=== PATIENT | male | born 1935 | race Caucasian/White ===

== ENCOUNTER 2018-04-21 10:51 | Outpatient (CLI) | payer MEDICARE ==
--- NOTE | 2018-04-21 11:34 | RAD ---
LUMBAR SPINE THREE VIEWS: Technique: Lateral views were obtained in neutral, flexion, and extension positions. History: Low back pain. FINDINGS: In the neutral position the lumbar vertebrae maintain height. There is loss of disc space at multiple levels, more prominent at T12-L1. Prominent osteophytes are seen anteriorly in the lower thoracic an d upper lumbar spine with bridging anterior osteophytes at T11-12 and T12-L1. Slight posterior listhesis at L1-2 and slight posterior listhesis at L2-3 measuring approximately 4 m m. Slight anterolisthesis at L4-5 measuring approximately 3-4 mm. Minimal anterolisthesis at L5-S1. P osterior facet hypertrophy is prominent. The listhesis at these levels do not appear to significantly change with flexion or extension. 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 POS: [facility]
== END 2018-04-21 10:52 | disposition home or self-care (01) ==
LOC: TBSIIMAG 10:51
PROVIDERS: ATTEND Neurological Surgery
DX: M54.5 Low back pain (principal); M47.816 Spondylosis without myelopathy or radiculopathy, lumbar region; M43.16 Spondylolisthesis, lumbar region
CPT/HCPCS: 72100

== ENCOUNTER 2021-09-20 10:55 | Outpatient (CLI) | payer MEDICARE | END 2021-09-20 10:56 | disposition home or self-care (01) | LOC: LABBT 10:55 | PROVIDERS: ATTEND Neurological Surgery | DX: Z20.822 Contact with and (suspected) exposure to COVID-19 (principal) | CPT/HCPCS: 87811 ==

== ENCOUNTER → 2021-09-24 | Day surgery (SDC) | payer MEDICARE ==
[2021-09-21 10:41] VITALS: BMI 25.7
[2021-09-24 08:39] LABS: #Eosinphils 0.1 thou/uL (0.0-0.7); #Lymphocytes 1.8 thou/uL (1.20-3.40); #Monocytes 1.1 thou/uL (0.11-0.59); #Neutrophils 6.7 thou/uL (1.40-6.50); %Basophils 0.3 % (0.0-1.0); %Eosinophils 1.2 % (0.0-10.0); %Lymphocytes 18.6 % (21.0-51.0); %Monocytes 11.1 % (0.0-10.0); %Neutrophils 68.7 % (42.0-75.0); Hemoglobin 13.4 g/dL (14.0-18.0); Mean Corpuscular HGB CONC 31.1 g/dL (32.0-36.0); Mean Corpuscular Hemoglobin 29.8 pg (27.0-31.0); Mean Corpuscular Volume 95.7 fL (78.0-98.0); Mean Platelet Volume 6.9 fL (7.4-10.4); Platelet Count 238 thou/uL (130-400); RBC Distribution Width 12.7 % (11.5-14.5); White Blood Cell (WBC) Count 9.8 thou/uL (4.8-10.8)
[2021-09-24 08:52] LABS: Prothrombin Time 13.6 sec (12.0-14.7)
[2021-09-24 09:28] VITALS: BP 133/72; TEMP 98
== END | disposition home or self-care (01) ==
LOC: CT 08:40
PROVIDERS: ATTEND Neurological Surgery
PROC: 0FB13ZX Excision of Right Lobe Liver, Percutaneous Approach, Diagnostic (ICD-10-PCS; principal; 2021-09-24)
DX: C22.7 Other specified carcinomas of liver (principal); C78.7 Secondary malignant neoplasm of liver and intrahepatic bile duct; C79.51 Secondary malignant neoplasm of bone; C78.00 Secondary malignant neoplasm of unspecified lung; E78.5 Hyperlipidemia, unspecified; Z87.891 Personal history of nicotine dependence; Z79.01 Long term (current) use of anticoagulants; Z79.899 Other long term (current) drug therapy; Z95.0 Presence of cardiac pacemaker; C34.82 Malignant neoplasm of overlapping sites of left bronchus and lung
CPT/HCPCS: 36415; 47000; 77012; 80053; 82248; 82378; 82728; 83615; 84100; 84153; 84155; 84165; 84550; 85025; 85610; 85730; 86301; 88307; 88333; 88341; 88342

== ENCOUNTER 2021-10-06 10:40 | Inpatient (IN) | payer MEDICARE ==
[2021-10-06] MEDS ORDERED: Morphine 4 MG/ML VIAL ONE ×2 (11:19→15:35)
[2021-10-06] MEDS ORDERED: Ondansetron PF 4 MG/2 ML Vial ONE (11:19)
[2021-10-06 11:26] LABS: #Lymphocytes 2.1 thou/uL (1.20-3.40); #Monocytes 1.6 thou/uL (0.11-0.59); #Neutrophils 10.5 thou/uL (1.40-6.50); %Basophils 0.1 % (0.0-1.0); %Eosinophils 0.2 % (0.0-10.0); %Lymphocytes 14.7 % (21.0-51.0); %Monocytes 11.5 % (0.0-10.0); %Neutrophils 73.5 % (42.0-75.0); Hemoglobin 15.5 g/dL (14.0-18.0); Mean Corpuscular HGB CONC 31.4 g/dL (32.0-36.0); Mean Corpuscular Hemoglobin 29.5 pg (27.0-31.0); Mean Corpuscular Volume 93.9 fL (78.0-98.0); Mean Platelet Volume 7.4 fL (7.4-10.4); Platelet Count 263 thou/uL (130-400); RBC Distribution Width 13.2 % (11.5-14.5); Red Blood Cell (RBC) Count 5.27 mill/uL (4.70-6.10); White Blood Cell (WBC) Count 14.3 thou/uL (4.8-10.8)
[2021-10-06 11:43] LABS: Bilirubin Negative (Negative); Blood, Urine Negative (Negative); Glucose, Urine (Dipstick) Normal (Negative); Ketone, Urine Trace mg/dL (Negative); Leukocyte Negative Leu/uL (Negative); Nitrite Negative (Negative); Protein, Urine (Dipstick) 20 mg/dL (Neg-Trace); Specific Gravity, Urine 1.016 (1.002-1.036); Urobilinogen Normal mg/dL (Less than 2); pH, Urine 7.5 (5.0-9.0)
[2021-10-06 11:46] LABS: Clarity Hazy (Clear)
[2021-10-06 11:49] LABS: ALT (SGPT) 15 U/L (8-55); AST (SGOT) 18 U/L (5-34); Albumin 4.2 g/dL (3.4-4.8); Alkaline Phosphatase 164 U/L (40-110); BUN (Urea Nitrogen) 26 mg/dL (8.4-25.7); Bilirubin, Total 1.8 mg/dL (0.2-1.2); CK (CPK) 46 U/L (30-200); Calc. Creatinine Clearance 0 mL/min (70-130); Calcium 9.9 mg/dL (7.8-10.44); Carbon Dioxide 21 mmol/L (23-31); Chloride 98 mmol/L (98-107); Estimated GFR 53; Globulin 2.5 g/dL (2.4-3.5); Glucose 144 mg/dL (83-110); Lipase 15 U/L (8-78); Potassium 4.1 mmol/L (3.5-5.1); Protein, Total 6.7 g/dL (5.8-8.1); Sodium 139 mmol/L (136-145)
[2021-10-06 12:05] LABS: Anion Gap 24 mmol/L (10-20)
[2021-10-06 14:34] LABS: Lactic Acid 1.5 mmol/L (0.5-2.2)
[2021-10-06] MEDS ORDERED: Iopamidol-370 76% 500 ML 1 ML ONE (15:50)
[2021-10-06] MEDS ORDERED: Ondansetron ODT 4 MG TAB PO PRN (16:14)
[2021-10-06] MEDS ORDERED: Acetaminophen 325 MG TAB PO PRN (16:14)
[2021-10-06] MEDS ORDERED: Bisacodyl 10 MG SUPP PR PRN (16:14)
[2021-10-06] MEDS ORDERED: Senokot S 8.6-50 MG TAB PO PRN (16:14)
[2021-10-06 17:09] LABS: Troponin I 0.015 ng/mL (< 0.028)
[2021-10-06 17:22] VITALS: BMI 24.6
[2021-10-06] MEDS: Sodium Chloride 0.9% 1,000 ML IV SCH (18:12)
[2021-10-06] MEDS ORDERED: Ketorolac Tromethamine 30 MG/ML VIAL IVP PRN (18:56)
[2021-10-06] MEDS: HYDROmorphone 2 MG TAB PO SCH (19:17)
[2021-10-06 19:25] LABS: SARS-CoV-2 NAA Rapid Test Not Detected (NotDetected)
[2021-10-06] MEDS: Simvastatin 10 MG TAB PO SCH (21:59)
[2021-10-06] MEDS: Metoprolol Tartrate 25 MG TAB PO SCH (21:59)
[2021-10-06] MEDS: Apixaban 2.5 MG TAB PO SCH (21:59)
[2021-10-06] MEDS: Flecainide 50 MG TAB PO SCH (21:59)
[2021-10-06] MEDS: Famotidine 20 MG TAB PO SCH (21:59)
[2021-10-06] MEDS ORDERED: hydrALAZINE 25 MG TAB PO SCH (22:00)
[2021-10-06] MEDS: hydrALAZINE 25 MG TAB PO SCH (22:05)
[2021-10-06] MEDS: Morphine 2 MG/ML VIAL SLOW IVP PRN (22:17)
[2021-10-07] MEDS: HYDROmorphone 2 MG TAB PO SCH ×4 (03:29→18:40)
[2021-10-07] MEDS: Morphine 2 MG/ML VIAL SLOW IVP PRN ×3 (05:30→16:07)
[2021-10-07] MEDS: hydrALAZINE 25 MG TAB PO SCH ×3 (05:31→21:00)
[2021-10-07 06:12] LABS: Anion Gap 14 mmol/L (10-20); BUN (Urea Nitrogen) 26 mg/dL (8.4-25.7); Calc. Creatinine Clearance 61 mL/min (70-130); Calcium 8.8 mg/dL (7.8-10.44); Carbon Dioxide 26 mmol/L (23-31); Chloride 101 mmol/L (98-107); Estimated GFR 74; Glucose 94 mg/dL (83-110); Potassium 4.2 mmol/L (3.5-5.1); Sodium 137 mmol/L (136-145)
[2021-10-07 06:18] LABS: #Eosinphils 0.1 thou/uL (0.0-0.7); %Basophils 0.1 % (0.0-1.0); %Eosinophils 1.6 % (0.0-10.0); %Monocytes 10.5 % (0.0-10.0); %Neutrophils 76.8 % (42.0-75.0); Hemoglobin 13.1 g/dL (14.0-18.0); Mean Corpuscular HGB CONC 32.8 g/dL (32.0-36.0); Mean Corpuscular Hemoglobin 30.9 pg (27.0-31.0); Mean Corpuscular Volume 94.2 fL (78.0-98.0); Mean Platelet Volume 7.2 fL (7.4-10.4); Platelet Count 191 thou/uL (130-400); RBC Distribution Width 13.3 % (11.5-14.5); Red Blood Cell (RBC) Count 4.23 mill/uL (4.70-6.10); White Blood Cell (WBC) Count 9.2 thou/uL (4.8-10.8)
[2021-10-07] MEDS: Sodium Chloride 0.9% 1,000 ML IV SCH (07:33)
[2021-10-07] MEDS: Ondansetron PF 4 MG/2 ML Vial IVP PRN ×2 (07:33→13:49)
[2021-10-07] MEDS ORDERED: Proctozone-HC 30 GM TUBE TOP PRN (08:26)
[2021-10-07] MEDS: Citalopram 20 MG TAB PO SCH (08:28)
[2021-10-07] MEDS: Flecainide 50 MG TAB PO SCH ×2 (08:28→21:01)
[2021-10-07] MEDS: Tamsulosin HCl 0.4 MG CAP PO SCH (08:28)
[2021-10-07] MEDS: Famotidine 20 MG TAB PO SCH ×2 (08:28→21:00)
[2021-10-07] MEDS: Metoprolol Tartrate 25 MG TAB PO SCH ×2 (08:28→21:01)
[2021-10-07] MEDS: Polyethylene Glycol 3350 17 GM Packet PO SCH (08:28)
[2021-10-07] MEDS ORDERED: Lidocaine 5% Patch TD SCH (08:30)
[2021-10-07] MEDS ORDERED: fentaNYL 50 mcg/hour Patch TD SCH (09:00)
[2021-10-07] MEDS: Senokot S 8.6-50 MG TAB PO SCH ×2 (09:37→21:02)
[2021-10-07] MEDS: Apixaban 2.5 MG TAB PO SCH ×2 (09:37→21:00)
[2021-10-07] MEDS: Simvastatin 10 MG TAB PO SCH (21:00)
[2021-10-07] MEDS: Transdermal Patch Removal TOP SCH (21:02)
[2021-10-07] MEDS: Melatonin 3 MG TAB PO PRN (23:40)
[2021-10-08] MEDS: HYDROmorphone 2 MG TAB PO SCH ×4 (02:15→20:00)
[2021-10-08 06:02] LABS: #Eosinphils 0.1 thou/uL (0.0-0.7); #Monocytes 1.2 thou/uL (0.11-0.59); %Basophils 0.2 % (0.0-1.0); %Eosinophils 1.4 % (0.0-10.0); %Lymphocytes 9.7 % (21.0-51.0); %Monocytes 11.5 % (0.0-10.0); %Neutrophils 77.2 % (42.0-75.0); Hemoglobin 12.8 g/dL (14.0-18.0); Mean Corpuscular HGB CONC 32.5 g/dL (32.0-36.0); Mean Corpuscular Hemoglobin 30.6 pg (27.0-31.0); Mean Corpuscular Volume 94.4 fL (78.0-98.0); Mean Platelet Volume 7.4 fL (7.4-10.4); Platelet Count 170 thou/uL (130-400); RBC Distribution Width 13.1 % (11.5-14.5); Red Blood Cell (RBC) Count 4.18 mill/uL (4.70-6.10); White Blood Cell (WBC) Count 10.3 thou/uL (4.8-10.8)
[2021-10-08] MEDS: hydrALAZINE 25 MG TAB PO SCH ×3 (06:14→22:11)
[2021-10-08 06:26] LABS: Anion Gap 12 mmol/L (10-20); BUN (Urea Nitrogen) 19 mg/dL (8.4-25.7); Calc. Creatinine Clearance 72 mL/min (70-130); Calcium 8.9 mg/dL (7.8-10.44); Carbon Dioxide 24 mmol/L (23-31); Chloride 100 mmol/L (98-107); Estimated GFR 85; Glucose 100 mg/dL (83-110); Potassium 4.3 mmol/L (3.5-5.1); Sodium 132 mmol/L (136-145)
[2021-10-08 06:38] LABS: CEA, Serum 8.95 ng/mL (< or = 5.0)
[2021-10-08 06:39] LABS: PSA-Asymptomatic (SCREENING) 0.07 ng/mL (0-4.0)
[2021-10-08] MEDS: Tamsulosin HCl 0.4 MG CAP PO SCH (08:11)
[2021-10-08] MEDS: Polyethylene Glycol 3350 17 GM Packet PO SCH (08:11)
[2021-10-08] MEDS: Citalopram 20 MG TAB PO SCH (08:11)
[2021-10-08] MEDS: Flecainide 50 MG TAB PO SCH ×2 (08:11→21:06)
[2021-10-08] MEDS: Famotidine 20 MG TAB PO SCH ×2 (08:11→21:06)
[2021-10-08] MEDS: Metoprolol Tartrate 25 MG TAB PO SCH ×2 (08:11→21:06)
[2021-10-08] MEDS: Senokot S 8.6-50 MG TAB PO SCH ×2 (08:11→21:06)
[2021-10-08] MEDS: Apixaban 2.5 MG TAB PO SCH ×2 (08:12→21:06)
[2021-10-08] MEDS: Lidocaine 5% Patch TD SCH (08:12)
[2021-10-08] MEDS: Gabapentin 300 MG CAP PO SCH ×3 (10:01→21:05)
[2021-10-08] MEDS: fentaNYL 75 mcg/hour Patch TD SCH (10:02)
[2021-10-08] MEDS: Ondansetron PF 4 MG/2 ML Vial IVP PRN (11:27)
[2021-10-08] MEDS: HYDROcodone/Acetaminophen 10/325 mg Tablet PO PRN (17:25)
[2021-10-08] MEDS: Transdermal Patch Removal TOP SCH (21:05)
[2021-10-08] MEDS: Simvastatin 10 MG TAB PO SCH (21:06)
[2021-10-08] MEDS: Dexamethasone 4 MG TAB PO SCH (21:07)
[2021-10-09] MEDS: HYDROmorphone 2 MG TAB PO SCH ×4 (02:10→20:10)
[2021-10-09] MEDS: hydrALAZINE 25 MG TAB PO SCH ×3 (05:14→22:30)
[2021-10-09 05:26] LABS: Anion Gap 13 mmol/L (10-20); BUN (Urea Nitrogen) 19 mg/dL (8.4-25.7); Calc. Creatinine Clearance 65 mL/min (70-130); Calcium 9.4 mg/dL (7.8-10.44); Carbon Dioxide 26 mmol/L (23-31); Chloride 99 mmol/L (98-107); Estimated GFR 81; Glucose 109 mg/dL (83-110); Potassium 4.4 mmol/L (3.5-5.1); Sodium 134 mmol/L (136-145)
[2021-10-09 05:47] LABS: Band 9 % (5-11); Hemoglobin 13.8 g/dL (14.0-18.0); Lymphocytes 14 % (21-51); MDiff Complete? YES; Mean Corpuscular HGB CONC 32.9 g/dL (32.0-36.0); Mean Corpuscular Hemoglobin 30.9 pg (27.0-31.0); Mean Corpuscular Volume 94.2 fL (78.0-98.0); Mean Platelet Volume 7.6 fL (7.4-10.4); Monocytes 3 % (0-10); Neutrophil 74 % (42-75); Platelet Count 170 thou/uL (130-400); RBC Distribution Width 13.1 % (11.5-14.5); Red Blood Cell (RBC) Count 4.46 mill/uL (4.70-6.10); White Blood Cell (WBC) Count 8.5 thou/uL (4.8-10.8)
[2021-10-09] MEDS: Tamsulosin HCl 0.4 MG CAP PO SCH (08:14)
[2021-10-09] MEDS: Dexamethasone 4 MG TAB PO SCH ×2 (08:14→20:10)
[2021-10-09] MEDS: Metoprolol Tartrate 25 MG TAB PO SCH ×2 (08:14→20:10)
[2021-10-09] MEDS: Citalopram 20 MG TAB PO SCH (08:14)
[2021-10-09] MEDS: Famotidine 20 MG TAB PO SCH (08:14)
[2021-10-09] MEDS: Flecainide 50 MG TAB PO SCH ×2 (08:14→20:10)
[2021-10-09] MEDS: Lidocaine 5% Patch TD SCH (08:15)
[2021-10-09] MEDS: Polyethylene Glycol 3350 17 GM Packet PO SCH (08:15)
[2021-10-09] MEDS: Gabapentin 300 MG CAP PO SCH ×3 (08:15→20:10)
[2021-10-09] MEDS: Senokot S 8.6-50 MG TAB PO SCH ×2 (08:16→20:10)
[2021-10-09] MEDS: Apixaban 2.5 MG TAB PO SCH (08:16)
[2021-10-09] MEDS: HYDROcodone/Acetaminophen 10/325 mg Tablet PO PRN (16:13)
[2021-10-09] MEDS: Simvastatin 10 MG TAB PO SCH (20:10)
[2021-10-09] MEDS: Apixaban 5 MG TAB PO SCH (20:11)
[2021-10-09] MEDS: Transdermal Patch Removal TOP SCH (20:11)
[2021-10-10] MEDS: HYDROmorphone 2 MG TAB PO SCH ×4 (01:18→20:11)
[2021-10-10] MEDS: hydrALAZINE 25 MG TAB PO SCH ×2 (05:59→17:47)
[2021-10-10] MEDS: Apixaban 5 MG TAB PO SCH ×2 (08:56→20:11)
[2021-10-10] MEDS: Lidocaine 5% Patch TD SCH (08:56)
[2021-10-10] MEDS: Citalopram 20 MG TAB PO SCH (08:56)
[2021-10-10] MEDS: Tamsulosin HCl 0.4 MG CAP PO SCH (08:56)
[2021-10-10] MEDS: Gabapentin 300 MG CAP PO SCH ×3 (08:56→20:11)
[2021-10-10] MEDS: Flecainide 50 MG TAB PO SCH ×2 (08:56→20:12)
[2021-10-10] MEDS: Senokot S 8.6-50 MG TAB PO SCH ×2 (08:57→20:11)
[2021-10-10] MEDS: Dexamethasone 4 MG TAB PO SCH ×2 (08:57→20:13)
[2021-10-10] MEDS: Metoprolol Tartrate 25 MG TAB PO SCH (08:57)
[2021-10-10] MEDS: Polyethylene Glycol 3350 17 GM Packet PO SCH (08:57)
[2021-10-10] MEDS: HYDROcodone/Acetaminophen 10/325 mg Tablet PO PRN (10:38)
[2021-10-10] MEDS ORDERED: Metoprolol Tartrate 5 MG/5 ML VIAL IVP SCH (12:47)
[2021-10-10] MEDS ORDERED: Digoxin 0.5 MG/2 ML AMP SLOW IVP SCH (18:45)
[2021-10-10] MEDS ORDERED: Diltiazem 125 MG in Sodium Chloride 0.9% 100 ML IVPB SCH (18:45)
[2021-10-10] MEDS: Sodium Chloride 0.9% 1,000 ML IV SCH (19:20)
[2021-10-10] MEDS ORDERED: Diltiazem HCl 125 MG in Premix Bag 1 BAG IVPB SCH (19:45)
[2021-10-10] MEDS: Simvastatin 10 MG TAB PO SCH (20:11)
[2021-10-10] MEDS: Melatonin 3 MG TAB PO PRN (20:28)
[2021-10-10] MEDS ORDERED: Metoprolol Tartrate 50 MG TAB PO SCH (21:00)
[2021-10-10] MEDS: Transdermal Patch Removal TOP SCH (22:24)
[2021-10-11] MEDS: HYDROmorphone 2 MG TAB PO SCH ×4 (01:05→21:14)
[2021-10-11] MEDS ORDERED: Sodium Chloride 0.9% 1,000 ML IV SCH (04:45)
[2021-10-11] MEDS: fentaNYL 75 mcg/hour Patch TD SCH (09:34)
[2021-10-11] MEDS: Gabapentin 300 MG CAP PO SCH ×3 (09:36→21:15)
[2021-10-11] MEDS: Flecainide 50 MG TAB PO SCH ×2 (09:36→21:14)
[2021-10-11] MEDS: Citalopram 20 MG TAB PO SCH (09:36)
[2021-10-11] MEDS: Apixaban 5 MG TAB PO SCH ×2 (09:36→21:15)
[2021-10-11] MEDS: Polyethylene Glycol 3350 17 GM Packet PO SCH (09:37)
[2021-10-11] MEDS: Senokot S 8.6-50 MG TAB PO SCH ×2 (09:37→21:15)
[2021-10-11] MEDS: Lidocaine 5% Patch TD SCH (09:37)
[2021-10-11] MEDS: Sodium Chloride 0.9% 1,000 ML IV SCH (09:37)
[2021-10-11] MEDS: Dexamethasone 4 MG TAB PO SCH ×2 (09:37→21:16)
[2021-10-11] MEDS: Simvastatin 10 MG TAB PO SCH (21:13)
[2021-10-11] MEDS: Metoprolol Tartrate 25 MG TAB PO SCH (21:15)
[2021-10-11] MEDS: Melatonin 3 MG TAB PO PRN (21:22)
[2021-10-12] MEDS: Transdermal Patch Removal TOP SCH ×2 (00:38→20:35)
[2021-10-12] MEDS: Sodium Chloride 0.9% 1,000 ML IV SCH ×2 (00:42→14:10)
[2021-10-12] MEDS: HYDROmorphone 2 MG TAB PO SCH ×4 (00:49→19:29)
[2021-10-12] MEDS: Lidocaine 5% Patch TD SCH (09:05)
[2021-10-12] MEDS: Polyethylene Glycol 3350 17 GM Packet PO SCH (09:05)
[2021-10-12] MEDS: Gabapentin 300 MG CAP PO SCH ×3 (09:05→20:34)
[2021-10-12] MEDS: Metoprolol Tartrate 25 MG TAB PO SCH (09:06)
[2021-10-12] MEDS: Apixaban 5 MG TAB PO SCH ×2 (09:07→20:34)
[2021-10-12] MEDS: Flecainide 50 MG TAB PO SCH (09:07)
[2021-10-12] MEDS: Citalopram 20 MG TAB PO SCH (09:07)
[2021-10-12] MEDS: Senokot S 8.6-50 MG TAB PO SCH ×2 (09:07→20:35)
[2021-10-12] MEDS: Dexamethasone 4 MG TAB PO SCH ×2 (09:07→20:35)
[2021-10-12] MEDS ORDERED: Metoprolol Tartrate 5 MG/5 ML VIAL ONE ×2 (12:12→12:27)
[2021-10-12] MEDS ORDERED: Amiodarone 150 MG, Admixture Fee 1 EACH in Dextrose 5% in Water 100 ML IVPB SCH (14:00)
[2021-10-12] MEDS: Amiodarone 450 MG, Admixture Fee 1 EACH in Dextrose 5% in Water 250 ML IVPB SCH (15:13)
[2021-10-12] MEDS: Simvastatin 10 MG TAB PO SCH (20:34)
[2021-10-12] MEDS ORDERED: Metoprolol Tartrate 25 MG TAB PO SCH (21:00)
[2021-10-13] MEDS: HYDROmorphone 2 MG TAB PO SCH ×4 (01:55→20:13)
[2021-10-13] MEDS: Amiodarone 450 MG, Admixture Fee 1 EACH in Dextrose 5% in Water 250 ML IVPB SCH ×2 (01:57→17:24)
[2021-10-13] MEDS: Sodium Chloride 0.9% 1,000 ML IV SCH ×2 (03:49→17:24)
[2021-10-13] MEDS: Dexamethasone 4 MG TAB PO SCH ×2 (11:00→20:14)
[2021-10-13] MEDS: Polyethylene Glycol 3350 17 GM Packet PO SCH (11:00)
[2021-10-13] MEDS: Citalopram 20 MG TAB PO SCH (11:00)
[2021-10-13] MEDS: Gabapentin 300 MG CAP PO SCH ×3 (11:01→20:14)
[2021-10-13] MEDS: Apixaban 5 MG TAB PO SCH ×2 (11:01→20:14)
[2021-10-13] MEDS: Senokot S 8.6-50 MG TAB PO SCH ×2 (11:02→20:14)
[2021-10-13] MEDS: Lidocaine 5% Patch TD SCH (11:02)
[2021-10-13] MEDS: Morphine 2 MG/ML VIAL SLOW IVP PRN (11:14)
[2021-10-13] MEDS ORDERED: Digoxin 0.5 MG/2 ML AMP SLOW IVP SCH (11:45)
[2021-10-13] MEDS: Transdermal Patch Removal TOP SCH (20:14)
[2021-10-13] MEDS: Simvastatin 10 MG TAB PO SCH (20:14)
[2021-10-14] MEDS: HYDROmorphone 2 MG TAB PO SCH ×4 (03:05→20:47)
[2021-10-14] MEDS: Amiodarone 450 MG, Admixture Fee 1 EACH in Dextrose 5% in Water 250 ML IVPB SCH (08:05)
[2021-10-14] MEDS: Sodium Chloride 0.9% 1,000 ML IV SCH ×2 (08:05→20:46)
[2021-10-14] MEDS ORDERED: Furosemide 40 MG/4 ML VIAL SLOW IVP SCH (08:30)
[2021-10-14] MEDS: fentaNYL 75 mcg/hour Patch TD SCH (09:32)
[2021-10-14] MEDS: Lidocaine 5% Patch TD SCH (09:34)
[2021-10-14] MEDS: Apixaban 5 MG TAB PO SCH ×2 (09:34→20:51)
[2021-10-14] MEDS: Gabapentin 300 MG CAP PO SCH ×3 (09:34→20:50)
[2021-10-14] MEDS: Citalopram 20 MG TAB PO SCH (09:34)
[2021-10-14] MEDS: Dexamethasone 4 MG TAB PO SCH ×2 (09:35→20:51)
[2021-10-14] MEDS: Senokot S 8.6-50 MG TAB PO SCH ×2 (11:11→20:49)
[2021-10-14] MEDS: Polyethylene Glycol 3350 17 GM Packet PO SCH (11:11)
[2021-10-14] MEDS: Amiodarone 200 MG TAB PO SCH ×2 (11:12→20:50)
[2021-10-14] MEDS: Simvastatin 10 MG TAB PO SCH (20:50)
[2021-10-14] MEDS: Transdermal Patch Removal TOP SCH (20:57)
[2021-10-14] MEDS: Morphine 2 MG/ML VIAL SLOW IVP PRN (23:46)
[2021-10-15] MEDS: HYDROmorphone 2 MG TAB PO SCH ×4 (05:57→20:26)
[2021-10-15 08:21] LABS: #Lymphocytes 0.5 thou/uL (1.20-3.40); #Monocytes 0.7 thou/uL (0.11-0.59); #Neutrophils 6.2 thou/uL (1.40-6.50); %Basophils 0.1 % (0.0-1.0); %Eosinophils 0.2 % (0.0-10.0); %Lymphocytes 6.9 % (21.0-51.0); %Monocytes 9.1 % (0.0-10.0); %Neutrophils 83.7 % (42.0-75.0); Hemoglobin 13.9 g/dL (14.0-18.0); Mean Corpuscular HGB CONC 32.1 g/dL (32.0-36.0); Mean Corpuscular Hemoglobin 30.1 pg (27.0-31.0); Mean Corpuscular Volume 93.8 fL (78.0-98.0); Mean Platelet Volume 7.4 fL (7.4-10.4); Platelet Count 205 thou/uL (130-400); RBC Distribution Width 13.5 % (11.5-14.5); White Blood Cell (WBC) Count 7.5 thou/uL (4.8-10.8)
[2021-10-15 08:35] LABS: ALT (SGPT) 15 U/L (8-55); AST (SGOT) 15 U/L (5-34); Albumin 3.3 g/dL (3.4-4.8); Alkaline Phosphatase 139 U/L (40-110); Anion Gap 12 mmol/L (10-20); BUN (Urea Nitrogen) 18 mg/dL (8.4-25.7); Bilirubin, Total 0.8 mg/dL (0.2-1.2); Calc. Creatinine Clearance 72 mL/min (70-130); Calcium 8.7 mg/dL (7.8-10.44); Carbon Dioxide 27 mmol/L (23-31); Chloride 99 mmol/L (98-107); Estimated GFR 84; Globulin 2.2 g/dL (2.4-3.5); Glucose 113 mg/dL (83-110); Potassium 3.9 mmol/L (3.5-5.1); Protein, Total 5.5 g/dL (5.8-8.1); Sodium 134 mmol/L (136-145)
[2021-10-15] MEDS: Gabapentin 300 MG CAP PO SCH ×3 (10:31→20:28)
[2021-10-15] MEDS: Amiodarone 200 MG TAB PO SCH ×2 (10:31→20:28)
[2021-10-15] MEDS: Lidocaine 5% Patch TD SCH (10:31)
[2021-10-15] MEDS: Polyethylene Glycol 3350 17 GM Packet PO SCH (10:32)
[2021-10-15] MEDS: Citalopram 20 MG TAB PO SCH (10:32)
[2021-10-15] MEDS: Senokot S 8.6-50 MG TAB PO SCH ×2 (10:32→20:28)
[2021-10-15] MEDS: Apixaban 5 MG TAB PO SCH ×2 (10:32→20:28)
[2021-10-15] MEDS: Dexamethasone 4 MG TAB PO SCH ×2 (10:32→20:28)
[2021-10-15] MEDS ORDERED: PROPOFOL 20 ML ONE (11:48)
[2021-10-15] MEDS ORDERED: PROPOFOL 200 MG/20 ML VIAL ONE (12:55)
[2021-10-15] MEDS: Sodium Chloride 0.9% 1,000 ML IV SCH (18:33)
[2021-10-15] MEDS: Simvastatin 10 MG TAB PO SCH (20:28)
[2021-10-15] MEDS: Transdermal Patch Removal TOP SCH (20:29)
[2021-10-16] MEDS: HYDROmorphone 2 MG TAB PO SCH ×3 (00:45→14:50)
[2021-10-16 08:13] LABS: #Lymphocytes 0.6 thou/uL (1.20-3.40); #Monocytes 0.8 thou/uL (0.11-0.59); #Neutrophils 6.7 thou/uL (1.40-6.50); %Eosinophils 0.1 % (0.0-10.0); %Lymphocytes 7.8 % (21.0-51.0); %Monocytes 9.8 % (0.0-10.0); %Neutrophils 82.3 % (42.0-75.0); Hemoglobin 12.9 g/dL (14.0-18.0); Mean Corpuscular HGB CONC 32.2 g/dL (32.0-36.0); Mean Corpuscular Hemoglobin 30.4 pg (27.0-31.0); Mean Corpuscular Volume 94.4 fL (78.0-98.0); Platelet Count 190 thou/uL (130-400); RBC Distribution Width 13.4 % (11.5-14.5); Red Blood Cell (RBC) Count 4.25 mill/uL (4.70-6.10); White Blood Cell (WBC) Count 8.1 thou/uL (4.8-10.8)
[2021-10-16 08:33] LABS: Anion Gap 13 mmol/L (10-20); BUN (Urea Nitrogen) 23 mg/dL (8.4-25.7); Calc. Creatinine Clearance 62 mL/min (70-130); Calcium 8.6 mg/dL (7.8-10.44); Carbon Dioxide 27 mmol/L (23-31); Chloride 98 mmol/L (98-107); Estimated GFR 73; Glucose 94 mg/dL (83-110); Sodium 134 mmol/L (136-145)
[2021-10-16] MEDS: Gabapentin 300 MG CAP PO SCH ×2 (08:54→14:51)
[2021-10-16] MEDS: Amiodarone 200 MG TAB PO SCH (08:55)
[2021-10-16] MEDS: Senokot S 8.6-50 MG TAB PO SCH (08:55)
[2021-10-16] MEDS: Dexamethasone 4 MG TAB PO SCH (08:56)
[2021-10-16] MEDS: Lidocaine 5% Patch TD SCH (08:56)
[2021-10-16] MEDS: Citalopram 20 MG TAB PO SCH (08:56)
[2021-10-16] MEDS: Apixaban 5 MG TAB PO SCH (08:56)
[2021-10-16] MEDS: Polyethylene Glycol 3350 17 GM Packet PO SCH (08:57)
[2021-10-16 11:59] VITALS: TEMP 97.9
[2021-10-16 12:57] VITALS: BP 162/77
== END 2021-10-16 14:55 | disposition home health service (06) | DRG 543 ==
LOC: ERS 10:40 → MSONC 15:12 → 2NO 10-10 15:47
PROVIDERS: ADMIT Internal Medicine; ATTEND Internal Medicine
PROC: 3E03305 Introduction of Other Antineoplastic into Peripheral Vein, Percutaneous Approach (ICD-10-PCS; principal; 2021-10-07)
PROC: B24BZZ4 Ultrasonography of Heart with Aorta, Transesophageal (ICD-10-PCS; 2021-10-15)
PROC: 5A2204Z Restoration of Cardiac Rhythm, Single (ICD-10-PCS; 2021-10-15)
DX: C79.51 Secondary malignant neoplasm of bone (principal); I48.20 Chronic atrial fibrillation, unspecified; E87.1 Hypo-osmolality and hyponatremia; N17.9 Acute kidney failure, unspecified; I48.92 Unspecified atrial flutter; C78.01 Secondary malignant neoplasm of right lung; C78.7 Secondary malignant neoplasm of liver and intrahepatic bile duct; C78.02 Secondary malignant neoplasm of left lung; C80.1 Malignant (primary) neoplasm, unspecified; G89.3 Neoplasm related pain (acute) (chronic); Z51.5 Encounter for palliative care; Z66 Do not resuscitate; Z20.822 Contact with and (suspected) exposure to COVID-19; I10 Essential (primary) hypertension; K21.9 Gastro-esophageal reflux disease without esophagitis; R73.9 Hyperglycemia, unspecified; I48.0 Paroxysmal atrial fibrillation; N40.0 Benign prostatic hyperplasia without lower urinary tract symptoms; E78.5 Hyperlipidemia, unspecified; K59.03 Drug induced constipation; I34.0 Nonrheumatic mitral (valve) insufficiency; T40.605A Adverse effect of unspecified narcotics, initial encounter; Z96.651 Presence of right artificial knee joint; Z95.0 Presence of cardiac pacemaker; Z90.49 Acquired absence of other specified parts of digestive tract; Z79.01 Long term (current) use of anticoagulants; Z79.899 Other long term (current) drug therapy
CPT/HCPCS: 36415; 71045; 74177; 77412; 77417; 78306; 80048; 80053; 81003; 82105; 82378; 82550; 83605; 83690; 83880; 84484; 85025; 86301; 92960; 93005; 93010; 93312; 96361; 96374; 96375; 96376; A9503; G0103; J0282; J1160; J1940; J2270; J2405; J2704; J7050; J7070; J8540; Q9967; U0002; U0003; U0005